=== PATIENT | female | born 1990 | race Caucasian/White ===

== ENCOUNTER 2018-01-25 04:33 | Inpatient (IN) | payer MEDICAID ==
[2018-01-25] VITALS (10 sets, daily range): BP systolic 112–136; BP diastolic 63–88; PULSE 80–104; RESP 13–22; TEMP 96.9–98.6; O2SAT 98–100
[~2018-01-25] VITALS: Ht 165.1 cm; Wt 64.0 kg
[~2018-01-25 04:33] MED LIST: COMPCHW PO
[2018-01-25] MEDS: LACTATED RINGER'S 1000 ML INJ 1,000 ML IV SCH ×3 (04:44→21:07)
[2018-01-25] MEDS ORDERED: LACTATED RINGER'S 1000 ML INJ 1,000 ML IV PRN (05:28)
--- NOTE | 2018-01-25 05:28 | HHI.HP ---
HPI Chief Complaint 27 yo WF 37 wks c/o CTXS , FHR reactive CTXs q 4 min . pt had 2 visits with [facility] Date Seen: Jan 25, 2018 Time Seen: 04:45 Travel History International Travel<30 Days: No Contact w/Intl Traveler<30Days: No Known Affected Area: No History of Present Illness HPI see CC Weeks Gestation: 37 Para: 3 : 4 Last Menstrual Period: Jan 25, 2018 History Obstetric History Obstetric History 3 vag deliveries Social History Alcohol Use: No Tobacco Use: Yes Substance Abuse: No Allergies-Medications (Allergen,Severity, Reaction): Coded Allergies: penicillin G (Unverified Adverse Reaction, Unknown, UNKNOWN, 09/20/17) BLACKOUTS Home Meds Active Scripts Vit W/ Ferrous Fumara (Completenate 29-1 mg) 29 Mg Iron-1 Mg Chw, 1 CHEW PO DAILY, #90 CHEW 2 Refills Prov:Leonidas Jackson MD R2 09/20/17 Review of Systems General / Constitutional: No: Fever, Weight Gain, Chills, Other Eyes: No: Diploplia, Blurred Vision, Visual changes, Pain, Photophobia HENT: No: Headaches, Vertigo, Lightheadedness Cardiovascular: No: Irregular Rhythm, Chest Pain or Discomfort, Palpitations, Tachycardia, Syncope, Varicosities, Edema, Cyanosis Respiratory: No: Cough, Short of Breath, Other Gastrointestinal: Abdominal Pain, No: Nausea, Vomiting, Diarrhea Genitourinary: No: Decreased Urinary Output, Oliguria Musculoskeletal: No: Limited ROM, Weakness, Cramping, Edema, Pain Skin: No Rash, No Itching, No Dryness, No Lumps, No Change in Pigmentation, No Change in Nails, No Alopecia, No Lesions Neurologic: No: Weakness, Dizziness, Syncope, Focal Abnormalities, Coordination Problem, Headache, Slurred Speech, Seizures Psychiatric: No: Depression, Suicidal Ideations, Homicidal Ideation Endocrine: No: Heat Intolerance, Cold Intolerance, Polydipsia, Polyuria, Other Physical Exam Narrative GENERAL: Well-nourished, well-developed patient. SKIN: Warm and dry. HEAD: Normocephalic and atraumatic. EYES: No scleral icterus. No injection or drainage. ENT: No nasal drainage noted. Mucous membranes pink. Airway patent. NECK: Supple, trachea midline. No JVD. CARDIOVASCULAR: Regular rate and rhythm without murmurs, gallops, or rubs. RESPIRATORY: Breath sounds equal bilaterally. No accessory muscle use. BREASTS: Bilateral exam showed no masses , no retractions, no nipple discharge. ABDOMEN/GI: Abdomen soft, non-tender, bowel sounds present, no rebound, no guarding Gravid to [-37] weeks size Fundal Height: [-37] GENITOURINARY: External Genitalia: intact and normal in appearance BUS glands: [-] Cervix: [-ant] Dilatation: [-9] Effacement: [100-] Station: [0-] Presentation: [vtx-] Membranes: [ ruptured] Uterine Contractions: [q 4 min-] FHT's: Category: [-1] Baseline: [-133] Reactive: [-R] Variability: [-mod] Decels: [none-] EXTREMITIES: No cyanosis or edema. BACK: Nontender without obvious deformity. No CVA tenderness. NEUROLOGICAL: Awake and alert. Motor and sensory grossly within normal limits. Five out of 5 muscle strength in all muscle groups. Normal speech. Caprini VTE Risk Assessment Caprini VTE Risk Assessment: No/Low Risk (score <= 1) Caprini Risk Assessment Model Point Value = 1 Point Value = 2 Point Value = 3 Point Value = 5 Age 41-60 Minor surgery BMI > 25 kg/m2 Swollen legs Varicose veins or History of unexplained or recurrent spontaneous Oral contraceptives or hormone replacement Sepsis (< 1 month) Serious lung disease, including pneumonia (< 1 month) Abnormal pulmonary function Acute myocardial infarction Congestive heart failure (< 1 month) History of inflammatory bowel disease Medical patient at bed rest Age 61-74 Arthroscopic surgery Major open surgery (> 45 min) Laparoscopic surgery (> 45 min) Malignancy Confined to bed (> 72 hours) Immobilizing plaster cast Central venous access Age >= 75 History of VTE Family history of VTE Factor V Leiden Prothrombin [id number] Lupus anticoagulant Anticardiolipin antibodies Elevated serum homocysteine Heparin-induced thrombocytopenia Other congenital or acquired thrombophilia Stroke (< 1 month) Elective arthroplasty Hip, pelvis, or leg fracture Acute spinal cord injury (< 1 month) Prophylaxis Regimen Total Risk Factor Score Risk Level Prophylaxis Regimen 0-1 Low Early ambulation 2 Moderate Order ONE of the following: *Sequential Compression Device (SCD) *Heparin 5000 units SQ BID 3-4 Higher Order ONE of the following medications: *Heparin 5000 units SQ TID *Enoxaparin/Lovenox 40 mg SQ daily (WT < 150 kg, CrCl > 30 mL/min) *Enoxaparin/Lovenox 30 mg SQ daily (WT < 150 kg, CrCl > 10-29 mL/min) *Enoxaparin/Lovenox 30 mg SQ BID (WT < 150 kg, CrCl > 30 mL/min) AND/OR *Sequential Compression Device (SCD) 5 or more Highest Order ONE of the following medications: *Heparin 5000 units SQ TID (Preferred with Epidurals) *Enoxaparin/Lovenox 40 mg SQ daily (WT < 150 kg, CrCl > 30 mL/min) *Enoxaparin/Lovenox 30 mg SQ daily (WT < 150 kg, CrCl > 10-29 mL/min) *Enoxaparin/Lovenox 30 mg SQ BID (WT < 150 kg, CrCl > 30 mL/min) AND *Sequential Compression Device (SCD) Data Data Orders Orders Ob (2e) Additional Admit Info (01/25/18 04:38) Assessment/Plan Assessment and Plan 27 yo WF at 37 wks with precipitate labor , cx 9/100/0 on admission , CTXs reg q 4 min , FHR reactive Plan -admit for labor management , anticipate vaginal delivery very soon Wade Vinson II, MD Jan 25, 2018 05:28
[2018-01-25] MEDS ORDERED: MINERAL OIL 10 ML VIAL TOPICAL PRN (05:30)
[2018-01-25] MEDS ORDERED: LIDOCAINE HCL 1% 50 ML VIAL INFIL PRN (05:30)
[2018-01-25] MEDS ORDERED: WITCH HAZEL 50%/GLYCERIN 12.5% 40 PAD JAR TOPICAL PRN (05:30)
[2018-01-25] MEDS ORDERED: CITRIC ACID-SODIUM CITRATE LIQ 30 ML UDC PO SCH (05:30)
[2018-01-25] MEDS ORDERED: ONDANSETRON ODT 4 MG TAB PO PRN (05:30)
[2018-01-25] MEDS ORDERED: OXYTOCIN 30 UNITS-500ML PREMIX 500 ML IV ONE (05:30)
[2018-01-25] MEDS ORDERED: BENZOCAINE 20% TOPICAL SPRAY 60 ML CAN TOPICAL PRN (05:30)
[2018-01-25] MEDS ORDERED: SODIUM CHLORIDE 0.9% FLUSH 10 ML FLUSH IV FLUSH PRN (05:30)
[2018-01-25] MEDS ORDERED: ZOLPIDEM TARTRATE 5 MG TAB PO PRN (05:30)
[2018-01-25] MEDS ORDERED: ALUMINUM/MAGNESIUM/SIMETH 30 ML CUP PO PRN (05:30)
[2018-01-25] MEDS ORDERED: OXYTOCIN 30 UNITS-500ML PREMIX 500 ML IV SCH (05:30)
[2018-01-25] MEDS ORDERED: DOCUSATE SODIUM 50 MG/SENNA 8.6 MG TAB PO PRN (05:30)
[2018-01-25] MEDS ORDERED: SODIUM CHLORID 0.9% 500 ML INJ 500 ML IV PRN (05:30)
[2018-01-25] MEDS ORDERED: LIDOCAINE HCL 1% 50 ML VIAL I-DERMAL PRN (05:30)
[2018-01-25] MEDS ORDERED: SODIUM CHLOR 0.9% 1000 ML INJ 1,000 ML IV PRN (05:48)
[2018-01-25] MEDS ORDERED: NITROGLYCERIN-D5W 50 MG/250 ML 250 ML ONE (06:04)
--- NOTE | 2018-01-25 06:04 | PD.OB.DELI ---
Weeks gestation: 37 Anesthesia: None Episiotomy: None Vaginal Delivery: Normal, Spontaneous Presentation: Occiput anterior Nuchal Cord: x1 Delayed cord clamping (45 sec): Yes Infant: Female Delivery date: Jan 25, 2018 Delivery time: 05:19 One Minute : 9 Five Minute : 9 Weight: 3060g Placenta: Manual removal, Other (Extended 3rd stage of labor >30 minutes, requiring manual extraction of placenta under genera anestesia.) Laceration: Perineal laceration, 1 deg Estimated blood loss: 100 Additional Information Delivered under the supervision of Dr. Karel Goodwin,Goyo Ruby MD R1 Jan 25, 2018 06:04
[2018-01-25] MEDS ORDERED: ONDANSETRON HCL 4 MG/2 ML VIAL IV PUSH ONE (06:10)
[2018-01-25 06:17] LABS: AUTOMATED NEUTROPHIL # 13.8 TH/MM3 (1.8-7.7); BASOPHIL # 0.1 TH/MM3 (0-0.2); BASOPHIL % 0.5 % (0.0-2.0); EOSINOPHIL % 0.1 % (0.0-4.0); HEMATOCRIT 35.9 % (35.0-46.0); LYMPH % 7.4 % (9.0-44.0); LYMPHOCYTE # 1.2 TH/MM3 (1.0-4.8); MEAN CELL VOLUME 85.1 FL (80.0-100.0); MEAN CORPUSCULAR HEMOGLOBIN 28.6 PG (27.0-34.0); MEAN CORPUSCULAR HGB CONC 33.6 % (32.0-36.0); MEAN PLATELET VOLUME 10.1 FL (7.0-11.0); MONO % 6.9 % (0.0-8.0); MONOCYTE # 1.1 TH/MM3 (0-0.9); NEUT % 85.1 % (16.0-70.0); PLATELET COUNT 222 TH/MM3 (150-450); RED BLOOD COUNT 4.21 MIL/MM3 (4.00-5.30); WHITE BLOOD COUNT 16.2 TH/MM3 (4.0-11.0)
[2018-01-25] MEDS ORDERED: MIDAZOLAM HCL 2 MG/2 ML VIAL ONE (06:17)
[2018-01-25] MEDS ORDERED: MISOPROSTOL 200 MCG TAB ONE (06:20)
--- NOTE | 2018-01-25 06:49 | MP ---
cc: Wade Vinson MD DATE OF OPERATION: 01/25/2018 PREOPERATIVE DIAGNOSIS: Adherent placenta prolonged third stage of labor. POSTOPERATIVE DIAGNOSES: Adherent placenta prolonged third stage of labor. PROCEDURE PERFORMED: Manual extraction of the placenta, uterine curettage. PROCEDURE: The patient had delivered vaginally without incident. Placenta would not deliver on its own with traction and massage. The prolonged third stage greater than 30 minutes, it was felt manual extraction needed. The patient was taken to the operating room and given conscious sedation of propofol and the placenta was then manually extracted without difficulty. The uterus remained firm the entire time. Pitocin was given in the IV fluid. The uterus was then explored with the surgeon's hand and small fragments of placental tissue removed. Then, the large banjo curette was used after grasping the cervix with a ring forceps. The banjo curette used to curette the endometrial cavity in a 4-quadrant technique. Uterine evacuation noted. No sign of any injury. Procedure was terminated at this point. 800 mg of Cytotec placed in the rectum. Pitocin was in the IV fluid. Blood loss was 300 mL. There were no complications. The patient was taken to recovery in stable condition. MD JEWELS Kessler/BRIDGER , 06:37 AM , 06:48 AM
[2018-01-25 10:21] LABS: BILIRUBIN, URINE NEG (NEG); BLOOD, URINE SMALL (NEG); GLUCOSE,URINE NEG (NEG); KETONE, URINE 10 mg/dL (NEG); NITRITE,URINE NEG (NEG); SQUAMOUS EPITHELIAL CELL URINE <1 /hpf (0-5); URINE COLOR LIGHT-YELLOW (YELLW/STRAW); URINE LEUKOCYTE ESTERASE NEG (NEG)
[2018-01-25] MEDS: ACETAMINOPHEN 325 MG TAB PO PRN ×2 (11:28→20:12)
[2018-01-25] MEDS: IBUPROFEN 800 MG TAB PO PRN ×2 (11:28→20:12)
[2018-01-25] MEDS ORDERED: ONDANSETRON HCL 4 MG/2 ML VIAL IV ONE (12:00)
[2018-01-25] MEDS ORDERED: LIDOCAINE HCL 1% PF 5 ML SYRINGE OTHER ONE (12:00)
[2018-01-25] MEDS ORDERED: PROPOFOL 200 MG/20 ML AMP IV ONE (12:00)
[2018-01-25] MEDS ORDERED: LACTATED RINGER'S 1000 ML INJ 1,000 ML IV ONE (12:00)
[2018-01-25] MEDS ORDERED: MEASLES, MUMPS, RUBELLA VACCINE 0.5 ML VIAL SQ ONE (16:00)
[2018-01-25] MEDS ORDERED: DIPHTH/TETANUS/ACEL PERTUSSIS (BOOSTER) 0.5 ML VIAL/PFS IM ONE (16:00)
[2018-01-25] MEDS: SODIUM CHLORIDE 0.9% FLUSH 10 ML FLUSH IV FLUSH SCH (21:00)
[2018-01-26 05:59] LABS: AUTOMATED NEUTROPHIL # 7.9 TH/MM3 (1.8-7.7); BASOPHIL % 0.2 % (0.0-2.0); EOSINOPHIL # 0.2 TH/MM3 (0-0.4); EOSINOPHIL % 1.7 % (0.0-4.0); HEMATOCRIT 27.7 % (35.0-46.0); HEMOGLOBIN 9.3 GM/DL (11.6-15.3); LYMPH % 19.7 % (9.0-44.0); LYMPHOCYTE # 2.2 TH/MM3 (1.0-4.8); MEAN CORPUSCULAR HEMOGLOBIN 28.7 PG (27.0-34.0); MEAN CORPUSCULAR HGB CONC 33.7 % (32.0-36.0); MEAN PLATELET VOLUME 10.4 FL (7.0-11.0); MONO % 7.8 % (0.0-8.0); MONOCYTE # 0.9 TH/MM3 (0-0.9); NEUT % 70.6 % (16.0-70.0); PLATELET COUNT 187 TH/MM3 (150-450); RED BLOOD COUNT 3.26 MIL/MM3 (4.00-5.30); RED CELL DISTRIBUTION WIDTH 15.8 % (11.6-17.2); WHITE BLOOD COUNT 11.2 TH/MM3 (4.0-11.0)
[2018-01-26 07:55] VITALS: BP 122/78; PULSE 72; RESP 20; TEMP 97.9
[2018-01-26] MEDS: ACETAMINOPHEN 325 MG TAB PO PRN ×3 (08:21→23:01)
[2018-01-26] MEDS: IBUPROFEN 800 MG TAB PO PRN ×2 (08:21→18:14)
--- NOTE | 2018-01-26 08:23 | HHI.OB ---
Subjective Post Day: 1 Remarks day # 1. AFVSS overnight. Decreased lochia. Denies dysuria. No breast tenderness. She is feeding the baby via formula. Appetite good. No nausea or vomiting. Drug screen +cocaine, benzos. Ambulating well. Denies calf pain or shortness of breath. Otherwise, she is doing well this morning and has no other concerns. Objective Vitals/I&O Vital Signs Date Time Temp Pulse Resp B/P (MAP) Pulse Ox O2 Delivery O2 Flow Rate FiO2 01/25/18 20:05 97.8 85 19 130/82 (98) 01/25/18 15:59 98.0 97 98 01/25/18 15:59 18 01/25/18 15:59 130/74 (92) 01/25/18 12:09 98.6 104 20 112/63 (79) 99 01/25/18 08:40 100 Objective Remarks GENERAL: Well-nourished, well-developed patient. CARDIOVASCULAR: Regular rate and rhythm without murmurs, gallops, or rubs. RESPIRATORY: Breath sounds equal bilaterally. No accessory muscle use. ABDOMEN/GI: Abdomen soft, non-tender. Fundus: Firm, non-tender at umbilicus. GENITOURINARY: Light to moderate bleeding. EXTREMITIES: No cyanosis or edema, non-tender, without signs of DVT. Medications and IVs Current Medications Medications (Trade) Dose Ordered Sig/Heather Route Start Time Stop Time Status Last Admin Lactated Ringer's 1,000 ml @ 125 mls/hr Q8H IV 01/25/18 05:28 01/25/18 04:44 Lactated Ringer's 1,000 ml @ 3,000 mls/hr Q20M PRN IV 01/25/18 05:28 Sodium Chloride 1,000 ml @ 100 mls/hr Q10H PRN IV 01/25/18 05:48 (Xylocaine 1% Inj (50 ml)) 0.1 ml UNSCH X1 PRN I-DERMAL 01/25/18 05:30 01/28/18 05:29 (Bicitra Liq) 30 ml CREDIT REFERENCE CLERK PO 01/25/18 05:30 01/29/18 05:29 (fentaNYL INJ) 50 mcg Q1H PRN IV PUSH 01/25/18 05:30 (fentaNYL INJ) 100 mcg Q1H PRN IV PUSH 01/25/18 05:30 (Xylocaine 1% Inj (50 ml)) 10 ml UNSCH X1 PRN INFIL 01/25/18 05:30 01/27/18 05:29 (Muri-Lube Oil) 10 ml UNSCH PRN TOPICAL 01/25/18 05:30 (NS Flush) 2 ml BID IV FLUSH 01/25/18 09:00 (NS Flush) 2 ml UNSCH PRN IV FLUSH 01/25/18 05:30 (Tylenol) 650 mg Q4H PRN PO 01/25/18 05:30 01/25/18 20:12 (Motrin) 800 mg Q8H PRN PO 01/25/18 05:30 01/25/18 20:12 (Americaine 20% Top Spr) 1 spray Q4H PRN TOPICAL 01/25/18 05:30 (Tucks Pads) 1 applic QID PRN TOPICAL 01/25/18 05:30 (Barb-Colace) 2 tab Q12H PRN PO 01/25/18 05:30 (Ambien) 5 mg HS PRN PO 01/25/18 05:30 (Mag-Al Plus Susp Liq) 15 ml Q8H PRN PO 01/25/18 05:30 (Zofran Odt) 4 mg Q6H PRN PO 01/25/18 05:30 Assessment/Plan Assessment and Plan 27 y/o female who is PPD# 1 s/p . GBS unknown. No PNC. -Continue routine care. -H&H reviewed and within normal limits -Percocet and Motrin PRN pain. -Encouraged OOB. Advised pelvic rest for 6 wks. -Re: ctrl, she would like Depo shot. No history clots, HTN, migraines. Ordered Depo, pt counseled that she will need Depo Provera shot in 3 months. -Anticipate discharge today or tomorrow, depending on baby disposition and psych recommendations. UDS positive for benzos, cocaine. DW Dr. Holman Discharge Planning D/C to home today or tomorrow Tamanna Avery MD R2 Jan 26, 2018 08:23
[2018-01-26] MEDS ORDERED: medroxyPROGESTERone ACETATE SUSP 150 MG/ML SYRINGE IM ONE (09:45)
[2018-01-26] MEDS ORDERED: PILL SPLITTER OTHER PRN (14:15)
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
[2018-01-26] MEDS: SERTRALINE HCL 50 MG TAB PO SCH (15:17)
[2018-01-26] MEDS: clonazePAM 0.5 MG TAB PO SCH ×2 (15:17→21:16)
[2018-01-26] MEDS: LACTATED RINGER'S 1000 ML INJ 1,000 ML IV SCH (19:00)
[2018-01-26] MEDS: SODIUM CHLORIDE 0.9% FLUSH 10 ML FLUSH IV FLUSH SCH (19:01)
[2018-01-26 20:05] VITALS: BP 138/85; PULSE 83; RESP 18; TEMP 97.9
[2018-01-26] MEDS ORDERED: REMOVE OLD NICODERM (NICOTINE) PATCH T-DERMAL SCH (21:00)
[2018-01-27] MEDS: IBUPROFEN 800 MG TAB PO PRN (06:07)
[2018-01-27] MEDS: ACETAMINOPHEN 325 MG TAB PO PRN (06:07)
[2018-01-27] MEDS: clonazePAM 0.5 MG TAB PO SCH (06:07)
[2018-01-27 07:55] VITALS: BP 126/69; PULSE 80; RESP 18; TEMP 97.7
--- NOTE | 2018-01-27 08:30 | HHI.OB ---
Subjective Post Day: 1 Remarks day # 1.AFVSS overnight. Decreased lochia. Denies dysuria. No breast tenderness. She is feeding the baby via breast. Appetite good. No nausea or vomiting. Ambulating well. Denies calf pain or shortness of breath. Otherwise, she is doing well this morning and has no other concerns. Objective Vitals/I&O Vital Signs Date Time Temp Pulse Resp B/P (MAP) Pulse Ox O2 Delivery O2 Flow Rate FiO2 01/26/18 20:05 97.9 83 18 138/85 (102) Objective Remarks GENERAL: Well-nourished, well-developed patient. CARDIOVASCULAR: Regular rate and rhythm without murmurs, gallops, or rubs. RESPIRATORY: Breath sounds equal bilaterally. No accessory muscle use. ABDOMEN/GI: Abdomen soft, non-tender. Fundus: Firm, non-tender at umbilicus. GENITOURINARY: Light to moderate bleeding. EXTREMITIES: No cyanosis or edema, non-tender, without signs of DVT. Medications and IVs Current Medications Medications (Trade) Dose Ordered Sig/Heather Route Start Time Stop Time Status Last Admin Lactated Ringer's 1,000 ml @ 125 mls/hr Q8H IV 01/25/18 05:28 01/25/18 04:44 Lactated Ringer's 1,000 ml @ 3,000 mls/hr Q20M PRN IV 01/25/18 05:28 Sodium Chloride 1,000 ml @ 100 mls/hr Q10H PRN IV 01/25/18 05:48 (Xylocaine 1% Inj (50 ml)) 0.1 ml UNSCH X1 PRN I-DERMAL 01/25/18 05:30 01/28/18 05:29 (Bicitra Liq) 30 ml EMPLOYEE RELATIONS CONSULTANT PO 01/25/18 05:30 01/29/18 05:29 (fentaNYL INJ) 50 mcg Q1H PRN IV PUSH 01/25/18 05:30 (fentaNYL INJ) 100 mcg Q1H PRN IV PUSH 01/25/18 05:30 (Muri-Lube Oil) 10 ml UNSCH PRN TOPICAL 01/25/18 05:30 (NS Flush) 2 ml BID IV FLUSH 01/25/18 09:00 (NS Flush) 2 ml UNSCH PRN IV FLUSH 01/25/18 05:30 (Tylenol) 650 mg Q4H PRN PO 01/25/18 05:30 01/27/18 06:07 (Motrin) 800 mg Q8H PRN PO 01/25/18 05:30 01/27/18 06:07 (Americaine 20% Top Spr) 1 spray Q4H PRN TOPICAL 01/25/18 05:30 (Tucks Pads) 1 applic QID PRN TOPICAL 01/25/18 05:30 (Barb-Colace) 2 tab Q12H PRN PO 01/25/18 05:30 (Ambien) 5 mg HS PRN PO 01/25/18 05:30 (Mag-Al Plus Susp Liq) 15 ml Q8H PRN PO 01/25/18 05:30 (Zofran Odt) 4 mg Q6H PRN PO 01/25/18 05:30 (Zoloft) 25 mg DAILY PO 01/26/18 14:15 01/26/18 15:17 (KlonoPIN) 0.5 mg Q8HR PO 01/26/18 14:15 01/27/18 06:07 (Pill Splitter) 1 ea UNSCH PRN OTHER 01/26/18 14:15 (Habitrol 14 Mg Patch.24 Hr) 1 patch DAILY T-DERMAL 01/27/18 09:00 Miscellaneous Information 1 HS T-DERMAL 01/26/18 21:00 Assessment/Plan Assessment and Plan 27 y/o female who is PPD# 2 s/p . GBS unknown. No PNC. -Continue routine care. -H&H reviewed and within normal limits -Percocet and Motrin PRN pain. -Encouraged OOB. Advised pelvic rest for 6 wks. -Re: ctrl, she would like Depo shot. No history clots, HTN, migraines. Ordered Depo, pt counseled that she will need Depo Provera shot in 3 months. -Anticipate discharge today, depending on baby disposition and psych recommendations. UDS positive for benzos, cocaine. DW Dr. Vinson Discharge Planning D/C to home today pending psych clearance Tamanna Avery MD R2 Jan 27, 2018 08:30
[2018-01-27] MEDS: SODIUM CHLORIDE 0.9% FLUSH 10 ML FLUSH IV FLUSH SCH (08:59)
[2018-01-27] MEDS ORDERED: NICOTINE 14 MG/24 HR PATCH T-DERMAL SCH (09:00)
[2018-01-27] MEDS: SERTRALINE HCL 50 MG TAB PO SCH (09:40)
[2018-01-27] MEDS ORDERED: CLON.5 PO (10:38)
[2018-01-27] MEDS ORDERED: IBUP1TAB7 PO (10:38)
[2018-01-27] MEDS ORDERED: ZOLO50TA PO (10:38)
[2018-01-27] MEDS ORDERED: ACET325T15 PO (10:39)
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
--- NOTE | 2018-01-27 11:45 | HHI.FPPN ---
Addendum to progress note ADDENDUM Reason for addendum: Additonal documentation Additional information Dr Dobbins spoke with Dr Mitchell this morning about Ms Fuentes discharging and Dr Mitchell believes she is stable for discharge. Will discharge pt with medication started by Dr Mitchell to include Zoloft 25mg daily and Klonopin 0.5mg q8h and have the pt follow up with him in 2 weeks. Сергей Dobbins MD R1 Jan 27, 2018 11:45
[2018-01-27] MEDS ORDERED: medroxyPROGESTERone ACETATE SUSP 150 MG/ML SYRINGE IM ONE (13:45)
== END 2018-01-27 13:58 | disposition home or self-care (01) | DRG 767 ==
LOC: HOBED 04:33 → H2EB 04:40 → H1EA 07:42
PROVIDERS: ADMIT Obstetrics & Gynecology Maternal & Fetal Medicine; ATTEND Obstetrics & Gynecology Maternal & Fetal Medicine
PROC: 10E0XZZ Delivery of Products of Conception, External Approach (ICD-10-PCS; principal; 2018-01-25)
PROC: 10D17Z9 Manual Extraction of Products of Conception, Retained, Via Natural or Artificial Opening (ICD-10-PCS; 2018-01-25)
PROC: 0HQ9XZZ Repair Perineum Skin, External Approach (ICD-10-PCS; 2018-01-25)
DX: O99.334 Smoking (tobacco) complicating childbirth (principal); F32.9 Major depressive disorder, single episode, unspecified; Z3A.37 37 weeks gestation of pregnancy; O99.324 Drug use complicating childbirth; F17.200 Nicotine dependence, unspecified, uncomplicated; Z37.0 Single live birth; O69.81X0 Labor and delivery complicated by cord around neck, without compression, not applicable or unspecified; O70.0 First degree perineal laceration during delivery; O99.344 Other mental disorders complicating childbirth; F43.10 Post-traumatic stress disorder, unspecified; F15.90 Other stimulant use, unspecified, uncomplicated; F14.90 Cocaine use, unspecified, uncomplicated; O62.3 Precipitate labor; O73.0 Retained placenta without hemorrhage; Z91.5 Personal history of self-harm; Z91.14 Patient's other noncompliance with medication regimen
CPT/HCPCS: 80074; 80307; 81001; 85025; 86592; 86703; 86900; 86901; 88307; 90715; 99283; G0481; J1050; J2250; J2405; J2590; J3010; J7120

== ENCOUNTER 2018-02-06 20:58 | Inpatient (IN) | payer MEDICAID, OTHER ==
[~2018-02-06 20:58] MED LIST changes: +ACET325T15 PO; +CLON.5 PO; +IBUP1TAB7 PO; +ZOLO50TA PO
[2018-02-06 21:05] VITALS: BP 122/78; PULSE 85; RESP 16; TEMP 98.7; O2SAT 100
[2018-02-06 21:44] LABS: AUTOMATED NEUTROPHIL # 4.2 TH/MM3 (1.8-7.7); BASOPHIL # 0.1 TH/MM3 (0-0.2); BASOPHIL % 0.7 % (0.0-2.0); EOSINOPHIL # 0.3 TH/MM3 (0-0.4); EOSINOPHIL % 4.1 % (0.0-4.0); HEMATOCRIT 35.4 % (35.0-46.0); HEMOGLOBIN 11.9 GM/DL (11.6-15.3); LYMPH % 30.2 % (9.0-44.0); LYMPHOCYTE # 2.2 TH/MM3 (1.0-4.8); MEAN CELL VOLUME 83.1 FL (80.0-100.0); MEAN CORPUSCULAR HGB CONC 33.7 % (32.0-36.0); MEAN PLATELET VOLUME 7.9 FL (7.0-11.0); MONO % 5.9 % (0.0-8.0); MONOCYTE # 0.4 TH/MM3 (0-0.9); NEUT % 59.1 % (16.0-70.0); PLATELET COUNT 472 TH/MM3 (150-450); RED BLOOD COUNT 4.27 MIL/MM3 (4.00-5.30); RED CELL DISTRIBUTION WIDTH 15.4 % (11.6-17.2); WHITE BLOOD COUNT 7.1 TH/MM3 (4.0-11.0)
--- NOTE | 2018-02-06 21:49 | PD ---
HPI Chief Complaint: Psychiatric Symptoms Time Seen by Provider: 21:19 Travel History International Travel<30 days: No Contact w/Intl Traveler<30days: No Traveled to known affect area: No History of Present Illness HPI 27-year-old female that presents to the ED for evaluation of Lamine enamorado. Patient was Raman acted by police secondary to apparently not eating and not taking care of herself. Patient suffers from anxiety and the depression as well as history of polysubstance abuse. She was recently put on Zoloft as well as Klonopin. Patient was recently discharged from the hospital after having a baby and she also per patient suffers from depression. Patient states feeling hopeless and very anxious. She denies any substance abuse. Per patient all the medication she takes other ones prescribed to her. She does have a history of anemia. She denies any pain at this time. She denies any other medical issues. She states that she has been Raman acted before and has been in psychiatric facilities in the past. Ayan Raman act apparently DCF has been involved with her and 2 of her children were removed from her. Ayan Raman acted a significant other who is the father of this new child is concerned for her secondary to increased stress secondary to stopping using substances as well as being a mother. Symptoms appear to have worsened the past few days. Patient denies any other medical issues at this time. Nothing makes them better. PFSH Past Medical History Hx Anticoagulant Therapy: No Anxiety: Yes Depression: Yes Heart Rhythm Problems: Yes (1ST DEGREE AV BLOCK) Cancer: No Cardiovascular Problems: Yes (1ST DEGREE AV BLOCK) Chemotherapy: No Cerebrovascular Accident: No Diabetes: No Diminished Hearing: No Endocrine: No Genitourinary: No Immune Disorder: No Musculoskeletal: No Neurologic: No Psychiatric: Yes (PTSD, MAJOR DEPRESSION/POST ) Respiratory: No Immunizations Current: No Migraines: Yes Seizures: Yes ?: Not Menopausal: No : 5 Para: 3 Miscarriage: 2 Past Surgical History Hysterectomy: No Social History Alcohol Use: No Tobacco Use: Yes Substance Use: Yes (LAST USED METH AND COKE-JANUARY 22, 2018) Allergies-Medications (Allergen,Severity, Reaction): Coded Allergies: penicillin G (Unverified Adverse Reaction, Unknown, UNKNOWN, 09/20/17) BLACKOUTS Reported Meds & Prescriptions Reported Meds & Active Scripts Active Ibuprofen 800 Mg Tab 800 Mg PO Q8H PRN 10 Days Take with food. Zoloft (Sertraline HCl) 50 Mg Tab 25 Mg PO DAILY 30 Days Klonopin (Clonazepam) 0.5 Mg Tab 0.5 Mg PO Q8HR 30 Days Review of Systems Except as stated in HPI: all other systems reviewed are Neg Physical Exam Narrative GENERAL: SKIN: Warm and dry. HEAD: Atraumatic. Normocephalic. EYES: Pupils equal and round. No scleral icterus. No injection or drainage. ENT: No nasal bleeding or discharge. Mucous membranes pink and moist. Tongue is midline. No uvula deviation. NECK: Trachea midline. No JVD. CARDIOVASCULAR: Regular rate and rhythm. No murmurs, S3, S4. RESPIRATORY: No accessory muscle use. Clear to auscultation. Breath sounds equal bilaterally. GASTROINTESTINAL: Abdomen soft, non-tender, nondistended. Hepatic and splenic margins not palpable. MUSCULOSKELETAL: Extremities without clubbing, cyanosis, or edema. No obvious deformities. Full range of motion of the upper and lower extremities bilaterally. 2+ pulses bilaterally. NEUROLOGICAL: Awake and alert. No obvious cranial nerve deficits. Motor grossly within normal limits. Five out of 5 muscle strength in the arms and legs. Normal speech. PSYCHIATRIC: Appropriate mood and affect; insight and judgment normal. Data Data Last Documented VS Vital Signs Date Time Temp Pulse Resp B/P (MAP) Pulse Ox O2 Delivery O2 Flow Rate FiO2 02/06/18 21:05 98.7 85 16 122/78 (93) 100 Orders Orders Complete Blood Count With Diff (02/06/18 21:05) Comprehensive Metabolic Panel (02/06/18 21:05) Thyroid Stimulating Hormone (02/06/18 21:05) Psych Screen (02/06/18 21:05) Drug Screen, Random Urine (02/06/18 21:05) Alcohol (Ethanol) (02/06/18 21:05) Salicylates (Aspirin) (02/06/18 21:05) Tylenol (Acetaminophen) (02/06/18 21:05) Ed Urine Pregnancytest Poc (02/06/18 21:28) Labs Laboratory Tests Test 02/06/18 21:13 02/06/18 21:23 White Blood Count 7.1 TH/MM3 Red Blood Count 4.27 MIL/MM3 Hemoglobin 11.9 GM/DL Hematocrit 35.4 % Mean Corpuscular Volume 83.1 FL Mean Corpuscular Hemoglobin 28.0 PG Mean Corpuscular Hemoglobin Concent 33.7 % Red Cell Distribution Width 15.4 % Platelet Count 472 TH/MM3 Mean Platelet Volume 7.9 FL Neutrophils (%) (Auto) 59.1 % Lymphocytes (%) (Auto) 30.2 % Monocytes (%) (Auto) 5.9 % Eosinophils (%) (Auto) 4.1 % Basophils (%) (Auto) 0.7 % Neutrophils # (Auto) 4.2 TH/MM3 Lymphocytes # (Auto) 2.2 TH/MM3 Monocytes # (Auto) 0.4 TH/MM3 Eosinophils # (Auto) 0.3 TH/MM3 Basophils # (Auto) 0.1 TH/MM3 CBC Comment DIFF FINAL Differential Comment MDM Medical Decision Making Medical Screen Exam Complete: Yes Emergency Medical Condition: Yes Medical Record Reviewed: Yes Differential Diagnosis Depression versus suicidal ideation versus anxiety versus adjustment disorder versus mood disorder versus bipolar disorder versus schizophrenia versus paranoid disorder versus psychosis versus substance abuse versus alcohol abuse versus alcohol induced psychosis versus homicidality addition versus cutting versus personality disorder Narrative Course 27-year-old female that presents to the ED for evaluation of Raman act. Patient was properly examined and was found to have signs and symptoms consistent with psychiatric illness. Labs were drawn. Patient will be medically clear. Okay to be seen by psych. Mental health screening was discussed with the patient. Diagnosis Primary Impression: Adjustment disorder with depressed mood Quentin Quinones Feb 06, 2018 21:49
[2018-02-06 21:54] LABS: ALBUMIN 3.5 GM/DL (3.4-5.0); AST (GOT) 25 U/L (15-37); BICARBONATE 25.1 MEQ/L (21.0-32.0); BLOOD UREA NITROGEN 21 MG/DL (7-18); CALCIUM 9.2 MG/DL (8.5-10.1); CHLORIDE 107 MEQ/L (98-107); CREATININE 0.65 MG/DL (0.50-1.00); GLOMERULAR FILTRATION RATE 109 ML/MIN (>89); GLUCOSE,RANDOM 81 MG/DL (74-106); SODIUM (NA) 140 MEQ/L (136-145)
[2018-02-06 21:55] LABS: ALT (GPT) 37 U/L (10-53)
[2018-02-06 22:05] LABS: ALKALINE PHOSPHATASE 118 U/L (45-117); TOTAL BILIRUBIN ADULT 0.3 MG/DL (0.2-1.0); TOTAL PROTEIN 7.5 GM/DL (6.4-8.2)
[2018-02-06 22:10] LABS: ACETAMINOPHEN LESS THAN 2.0 MCG/ML (10.0-30.0)
[2018-02-07 00:24] VITALS: BP 113/62; PULSE 78; RESP 18; TEMP 99.5; O2SAT 98
[2018-02-07 06:20] VITALS: BP 109/66; PULSE 76; RESP 20; TEMP 97.6; O2SAT 99
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
[2018-02-07] MEDS ORDERED: ALUMINUM/MAGNESIUM/SIMETH 30 ML CUP PO PRN (10:15)
[2018-02-07] MEDS ORDERED: MAGNESIUM HYDROXIDE SUSP 30 ML CUP PO PRN (10:15)
[2018-02-07 11:56] VITALS: BP 121/75; PULSE 94; RESP 18; TEMP 98.8; O2SAT 98
[2018-02-07] MEDS: ACETAMINOPHEN 325 MG TAB PO PRN ×2 (14:27→20:37)
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
[2018-02-07] MEDS: IBUPROFEN 800 MG TAB PO SCH (17:42)
[2018-02-07] MEDS ORDERED: AMMONIA AROMATIC INHALANT 0.33 ML ONE (19:35)
[2018-02-07] MEDS ORDERED: clonazePAM 0.5 MG TAB PO ONE (20:15)
[2018-02-07] MEDS: DOXYCYCLINE HYCLATE 100 MG CAP PO SCH (20:37)
[2018-02-08 05:36] VITALS: BP 126/69; PULSE 97; RESP 16; TEMP 97.7; O2SAT 96
[2018-02-08] MEDS: IBUPROFEN 800 MG TAB PO SCH ×5 (06:37→23:30)
[2018-02-08 07:05] LABS: AUTOMATED NEUTROPHIL # 2.9 TH/MM3 (1.8-7.7); BASOPHIL % 0.8 % (0.0-2.0); EOSINOPHIL # 0.2 TH/MM3 (0-0.4); HEMATOCRIT 33.9 % (35.0-46.0); HEMOGLOBIN 11.5 GM/DL (11.6-15.3); LYMPH % 35.6 % (9.0-44.0); MEAN CELL VOLUME 82.6 FL (80.0-100.0); MEAN CORPUSCULAR HEMOGLOBIN 28.1 PG (27.0-34.0); MONO % 7.4 % (0.0-8.0); MONOCYTE # 0.4 TH/MM3 (0-0.9); NEUT % 52.2 % (16.0-70.0); PLATELET COUNT 407 TH/MM3 (150-450); RED BLOOD COUNT 4.11 MIL/MM3 (4.00-5.30); RED CELL DISTRIBUTION WIDTH 15.7 % (11.6-17.2); WHITE BLOOD COUNT 5.7 TH/MM3 (4.0-11.0)
[2018-02-08 07:33] LABS: BICARBONATE 23.3 MEQ/L (21.0-32.0); BLOOD UREA NITROGEN 23 MG/DL (7-18); CALCIUM 8.9 MG/DL (8.5-10.1); CHLORIDE 108 MEQ/L (98-107); CREATININE 0.69 MG/DL (0.50-1.00); GLOMERULAR FILTRATION RATE 101 ML/MIN (>89); GLUCOSE,RANDOM 89 MG/DL (74-106); SODIUM (NA) 140 MEQ/L (136-145)
[2018-02-08 07:34] LABS: CHOLESTEROL 190 MG/DL (120-200); TRIGLYCERIDES 52 MG/DL (42-150)
[2018-02-08 07:36] LABS: CHOLESTEROL/ HDL RATIO 2.99 RATIO; HDL CHOLESTEROL 63.5 MG/DL (40.0-60.0); LDL CHOLESTEROL 116 MG/DL (0-99)
[2018-02-08] MEDS: DOXYCYCLINE HYCLATE 100 MG CAP PO SCH ×2 (08:19→20:21)
[2018-02-08] MEDS ORDERED: INFLUENZA VIRUS VACCINE (QUADRIVALENT) 0.5 ML SYR IM ONE (10:00)
[2018-02-08] MEDS: ACETAMINOPHEN 325 MG TAB PO PRN ×3 (10:11→20:34)
--- NOTE | 2018-02-08 10:43 | RADRPT ---
EXAM DATE/TIME: 02/08/2018 09:32 [place] COMPARISON: No previous studies available for comparison. INDICATIONS : Pelvic pain. 2 weeks MEDICAL HISTORY : Glasses. Seizures. 1st degree AV block. PTSD. Chronic back pain. Depression. Anxiety. Previous suicid e attempt. SURGICAL HISTORY : D&C. ENCOUNTER: Initial ACUITY: 2 days PAIN SCORE: 9/10 LOCATION: Bilateral pelvis MEASUREMENTS: UTERUS: 13.0 x 7.7 x 7.1 cm RIGHT OVARY: 4.2 x 5.3 x 2.8 cm FINDINGS: There is marked prominence of the endometrial lining with heterogeneous moderately increased echotext ure and poorly defined margins. The thickness of the endometrium measures in excess of 20 mm. There is poor delineation of the margin between the endometrium and myometrium. The right ovary has a nor mal echotexture. The left ovary is not identified on either transabdominal or endovaginal scans. No evidence of free fluid. CONCLUSION: 1. Inhomogeneous echotexture and marked thickening of the endometrium. 2. Left ovary is not identified. 3. No evidence of free fluid. Sanjay Leblanc MD on February 08, 2018 at 10:38 Board Certified Radiologist. This report was verified electronically.
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
[2018-02-08] MEDS ORDERED: hydrOXYzine HCL 50 MG TAB PO PRN (11:00)
[2018-02-08] MEDS: NICOTINE 21 MG/24 HR PATCH T-DERMAL SCH (11:00)
[2018-02-08] MEDS: SERTRALINE HCL 50 MG TAB PO SCH (13:09)
--- NOTE | 2018-02-08 17:25 | PD.CONS ---
HPI Service [facility] Consult Requested By DR SIM ALEMAN MD Reason for Consult Episode of unresponsiveness overnight, responded to smelling salts. Patient reports history of first-degree AV block Primary Care Physician Unknown Diagnoses: History of Present Illness Patient is a 27-year-old female. Who we were asked to see patient regarding episode of unresponsiveness overnight and responding to smelling salts , and history of first-degree AV block. Patient recently has been having depression after having a baby few weeks ago. Was brought in as a Raman act. Has anxiety and depression history of polysubstance abuse with cocaine and methamphetamine We have been asked to see her regarding medical management. Her EKG is abnormal but this is not unexpected after recently giving and having history of cocaine and methamphetamine use Review of Systems ROS Limitations: Altered Mental Status, Psychotic Constitutional: COMPLAINS OF: Fatigue, Weight loss, DENIES: Diaphoretic episodes, Fever, Weight gain, Chills, Dizziness, Change in appetite, Night Sweats Endocrine: COMPLAINS OF: Abnorml menstrual pattern, DENIES: Heat/cold intolerance, Polydipsia, Polyuria, Polyphagia Eyes: DENIES: Blurred vision, Diplopia, Eye inflammation, Eye pain, Vision loss , Photosensitivity, Double Vision Ears, nose, mouth, throat: COMPLAINS OF: Running Nose, DENIES: Tinnitus, Hearing loss, Vertigo, Nasal discharge, Oral lesions, Throat pain, Hoarseness, Ear Pain, Epistaxis Respiratory: DENIES: Apneas, Cough, Snoring, Wheezing, Hemoptysis, Sputum production, Shortness of breath Cardiovascular: DENIES: Chest pain, Palpitations, Syncope, Dyspnea on Exertion , PND, Lower Extremity Edema, Orthopnea, Claudication Gastrointestinal: COMPLAINS OF: Difficulty Swallowing, Anorexia, DENIES: Abdominal pain, Black stools, Bloody stools, Constipation, Diarrhea, Nausea, Vomiting Genitourinary: COMPLAINS OF: Abnormal vaginal bleeding, DENIES: Dysmenorrhea, Dyspareunia, Sexual dysfunction, Urinary frequency, Urinary incontinence, Urgency Musculoskeletal: DENIES: Joint pain, Muscle aches, Stiffness, Joint Swelling, Back pain, Neck pain Integumentary: DENIES: Abnormal pigmentation, Pruritus, Rash, Nail changes, Breast masses, Breast skin changes, Nipple discharge Hematologic/lymphatic: DENIES: Bruising, Lymphadenopathy Immunologic/allergic: DENIES: Eczema, Urticaria Neurologic: DENIES: Abnormal gait, Headache, Localized weakness, Paresthesias, Seizures, Speech Problems, Tremor, Poor Balance Psychiatric: COMPLAINS OF: Anxiety, Confusion, Mood changes, Depression Except as stated in HPI: all other systems reviewed are Neg Past Family Social History Allergies: Coded Allergies: penicillin G (Unverified Adverse Reaction, Unknown, UNKNOWN, 09/20/17) BLACKOUTS Past Medical History First-degree AV block Anxiety and depression PTSD depression Migraines by history Seizures by history 5 para 3 2 miscarriages Past Surgical History Recent D&C after delivery Reported Medications Reported Meds & Active Scripts Active Ibuprofen 800 Mg Tab 800 Mg PO Q8H PRN 10 Days Take with food. Zoloft (Sertraline HCl) 50 Mg Tab 25 Mg PO DAILY 30 Days Klonopin (Clonazepam) 0.5 Mg Tab 0.5 Mg PO Q8HR 30 Days Active Ordered Medications Current Medications Acetaminophen (Tylenol) 650 mg Q4H PRN PO Pain 1-5 or Temp >101F Last administered on 02/08/18at 14:04; Start 02/07/18 at 10:15 Magnesium Hydroxide (Milk Of Magnesia Liq) 30 ml DAILY PRN PO CONSTIPATION; Start 02/07/18 at 10:15 Al Hydrox/Mg Hydrox/Simethicone (Mag-Al Plus Susp Liq) 30 ml Q6H PRN PO DYSPEPSIA Last administered on 02/08/18at 15:18; Start 02/07/18 at 10:15 Influenza Virus Vaccine (Flu (Quadrivalent) Vaccine Inj) 0.5 ml ONCE ONCE IM Last administered on 02/08/18at 10:14; Start 02/08/18 at 10:00; Stop 02/08/18 at 10: 01; Status DC Doxycycline Hyclate (Vibramycin) 100 mg BID PO Last administered on 02/08/18at 08 :19; Start 02/07/18 at 21:00 Ibuprofen (Motrin) 800 mg Q6HR PO Last administered on 02/08/18at 11:21; Start at 18:00 Ammonia (Aromatic Spirit) (Aromatic Ammonia Inhalant) 0.33 ml STK-MED ONCE .ROUTE Last administered on 02/07/18at 19:35; Start 02/07/18 at 19:35; Stop at 19:36; Status DC Clonazepam (KlonoPIN) 0.5 mg NOW ONCE PO Last administered on 02/07/18at 20:37 ; Start 02/07/18 at 20:15; Stop 02/07/18 at 20:16; Status DC Sertraline HCl (Zoloft) 50 mg DAILY PO Last administered on 02/08/18at 13:09; Start 02/08/18 at 11:00 Hydroxyzine HCl (Atarax) 50 mg Q6H PRN PO Anxiety Last administered on at 15:18; Start 02/08/18 at 11:00 Nicotine (Habitrol 21 Mg Patch.24 Hr) 1 patch DAILY T-DERMAL Last administered on 02/08/18at 11:00; Start 02/08/18 at 11:00 Miscellaneous Information 1 DAILY T-DERMAL ; Start 02/09/18 at 09:00 Family History Possible psychiatric problems and possible drug use Tobacco abuse in the family Social History Recent delivery Denies any alcohol Positive tobacco Last used methamphetamine and cocaine January 22 Physical Exam Vital Signs Vital Signs Date Time Temp Pulse Resp B/P (MAP) Pulse Ox O2 Delivery O2 Flow Rate FiO2 02/08/18 05:36 97.7 97 16 126/69 (88) 96 Physical Exam GENERAL: This is a well-nourished, well-developed patient, in no apparent distress. Quite thin appearing awake alert and oriented 3 talkative and cooperative SKIN: No rashes, ecchymoses or lesions. Cool and dry. HEAD: Atraumatic. Normocephalic. No temporal or scalp tenderness. EYES: Pupils equal round and reactive. Extraocular motions intact. No scleral icterus. No injection or drainage. ENT: Nose without bleeding, purulent drainage or septal hematoma. Throat without erythema, tonsillar hypertrophy or exudate. Uvula midline. Airway patent. NECK: Trachea midline. No JVD or lymphadenopathy. Supple, nontender, no meningeal signs. CARDIOVASCULAR: Regular rate and rhythm without murmurs, gallops, or rubs. S1- S2 no S3 or S4 RESPIRATORY: Clear to auscultation. Breath sounds equal bilaterally. No wheezes , rales, or rhonchi. GASTROINTESTINAL: Abdomen soft, non-tender, nondistended. No hepato-splenomegaly , or palpable masses. No guarding. MUSCULOSKELETAL: Extremities without clubbing, cyanosis, or edema. No joint tenderness, effusion, or edema noted. No calf tenderness. Negative Homans sign bilaterally. NEUROLOGICAL: Awake and alert. Cranial nerves II through XII intact. Motor and sensory grossly within normal limits. Five out of 5 muscle strength in all muscle groups. Normal speech. Insight and judgment is limited Mood and behavior somewhat appropriate Laboratory Laboratory Tests Test 02/08/18 06:20 White Blood Count 5.7 Red Blood Count 4.11 Hemoglobin 11.5 Hematocrit 33.9 Mean Corpuscular Volume 82.6 Mean Corpuscular Hemoglobin 28.1 Mean Corpuscular Hemoglobin Concent 34.0 Red Cell Distribution Width 15.7 Platelet Count 407 Mean Platelet Volume 8.0 Neutrophils (%) (Auto) 52.2 Lymphocytes (%) (Auto) 35.6 Monocytes (%) (Auto) 7.4 Eosinophils (%) (Auto) 4.0 Basophils (%) (Auto) 0.8 Neutrophils # (Auto) 2.9 Lymphocytes # (Auto) 2.0 Monocytes # (Auto) 0.4 Eosinophils # (Auto) 0.2 Basophils # (Auto) 0.0 CBC Comment DIFF FINAL Differential Comment Blood Urea Nitrogen 23 Creatinine 0.69 Random Glucose 89 Calcium Level 8.9 Sodium Level 140 Potassium Level 4.1 Chloride Level 108 Carbon Dioxide Level 23.3 Anion Gap 9 Estimat Glomerular Filtration Rate 101 Hemoglobin A1c 4.8 Triglycerides Level 52 Cholesterol Level 190 LDL Cholesterol 116 HDL Cholesterol 63.5 Cholesterol/HDL Ratio 2.99 Result Diagram: 02/08/18 0620 02/08/18 0620 Imaging Last Impressions Abdomen/Pelvis/Transvag US 02/08/18 0841 Signed Impressions: Service Date/Time: Thursday, February 08, 2018 09:32 - CONCLUSION: 1. Inhomogeneous echotexture and marked thickening of the endometrium. 2. Left ovary is not identified. 3. No evidence of free fluid. Sanjay Leblanc MD Assessment and Plan Assessment and Plan Status post recent normal spontaneous vaginal delivery with recent D&C Anxiety and depression We will defer to psychiatry History of methamphetamine and cocaine abuse recommend cessation Chronic back pain Tylenol as needed Abnormal EKG suspect secondary to recent . Recommend cessation of all methamphetamine and cocaine Monitor in the hospital for any other issues episode of unresponsiveness overnight and responding to smelling salts, and history of first-degree AV block-doubt this is been caused by the first degree AV block Can get an echocardiogram for completeness A.m. labs Code Status Full code Discussed Condition With Discussed with RN and patient Prosper Conley DO February 08, 2018 17:25
--- NOTE | 2018-02-08 17:27 | HHI.PR ---
OPERATIONS SUPPORT COORDINATOR Note Note OPERATIONS SUPPORT COORDINATOR Consult Note Patient re-evaluated this afternoon. Patient states her abdominal pain is slightly improved, still present. She endorses intermittent chills as well. Denies subjective fevers. Denies abnormal vaginal discharge or bleeding. GENERAL: NAD, lying in bed CARDIOVASCULAR: Regular rate and rhythm without murmurs, gallops, or rubs. RESPIRATORY: Breath sounds equal bilaterally, without w/r/r. No accessory muscle use.. ABDOMEN/GI: Soft, moderate generalized tenderness but lessened compared to prior exam, +BS, no masses appreciated, no rebound tenderness EXTREMITIES: No cyanosis or edema. BACK: Nontender without obvious deformity. No CVA tenderness A/P: 27-year-old female recently delivered on 01/25/18 via consulted due to generalized abdominal pain. Suspecting endometritis due to instrumentation from uterine curettage and exploration on 01/25/18 although the patient remains afebrile, without leukocytosis and reassuring abdominal and pelvic exams at this time. 1. Endometritis -Continue Doxycycline 100 mg po bid x10 days -Consider addition of Augmentin if clinical exam worsens -TVUS showing inhomogeneous echotexture and marked thickening of the endometrium. No free fluid. -Continue ibuprofen 800 mg po q6h for pain and inflammation 2. Depression and Anxiety -Managed per psychiatry team We will continue to follow. Navjot Puente Dr., MD R2 February 08, 2018 17:27
[2018-02-08 18:19] VITALS: BP 127/83; PULSE 109; RESP 20; TEMP 98.2; O2SAT 98
[2018-02-08 18:32] LABS: HEMOGLOBIN A1C 5.1 % (4.3-6.0)
[2018-02-09] MEDS: IBUPROFEN 800 MG TAB PO SCH ×3 (06:01→18:00)
[2018-02-09 06:11] VITALS: BP 94/65; PULSE 87; RESP 18; TEMP 98.1; O2SAT 98
[2018-02-09] MEDS ORDERED: REMOVE OLD PATCH T-DERMAL SCH (09:00)
[2018-02-09] MEDS: NICOTINE 21 MG/24 HR PATCH T-DERMAL SCH (09:00)
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
[2018-02-09] MEDS: DOXYCYCLINE HYCLATE 100 MG CAP PO SCH ×2 (09:46→20:06)
[2018-02-09] MEDS: SERTRALINE HCL 50 MG TAB PO SCH (09:46)
--- NOTE | 2018-02-09 09:52 | EKG ---
Date Performed: 02/08/2018 Time Performed: 14:09:25 PTAGE: 27 years EKG: Normal Sinus rhythm Possible left atrial abnormality High QRS voltage Possible left ventricular hypertrophy by toma devries high voltage due to young age NO PREVIOUS TRACING DOCTOR: Mesfin Garcia Interpretating Date/Time 02/09/2018 09:52:10
[2018-02-09] MEDS ORDERED: diphenhydrAMINE HCL 25 MG CAP PO PRN (15:30)
[2018-02-09] MEDS: NICOTINE 14 MG/24 HR PATCH T-DERMAL SCH (15:30)
--- NOTE | 2018-02-09 16:15 | PD.TTN ---
Patient Problems 1. Discharge planning 2. Medication compliance 3. Knowledge deficit 4. Lack of coping skills Progress Toward Goals Provider Present: Dr. Stevan Doss Provider Input: 02/08/18 wants titrate medications but can go to [facility] for [place] Act Psychiatric Counselors Present: Lisa Smart LCSW Psych Therapist Input: 02/08/18 talked with [facility] Kala at [phone] and they have treatment plan for her and to transition to [facility] after rehab at [facility] pt is aware and open to it Group Spec/RT/OT/FLORES Present: Amilcar Long OT Group Spec/RT/OT/FLORES Input: 02/08/18 Lisa Clarke LCSW February 09, 2018 16:15
--- NOTE | 2018-02-09 16:26 | HHI.PR ---
FREIGHT ROUTER Note Note FREIGHT ROUTER Consult Note Patient seen and examined this afternoon. Patient denies any abdominal or pelvic pain. She does endorse cramping pain intermittently. Denies subjective fevers. Denies abnormal vaginal discharge or bleeding. GENERAL: NAD CARDIOVASCULAR: Regular rate and rhythm without murmurs, gallops, or rubs. RESPIRATORY: Breath sounds equal bilaterally, without w/r/r. No accessory muscle use.. ABDOMEN/GI: Soft, nontender, nondistended, +BS, no masses appreciated, no rebound tenderness, no guarding EXTREMITIES: No cyanosis or edema. BACK: Nontender without obvious deformity. No CVA tenderness A/P: 27-year-old female recently delivered on 01/25/18 via consulted due to generalized abdominal pain. Suspecting endometritis due to instrumentation from uterine curettage and exploration on 01/25/18 although the patient remains afebrile, without leukocytosis and reassuring abdominal and pelvic exams at this time. 1. Endometritis -Continue Doxycycline 100 mg po bid x10 days, stop date of February 17 in the AM -TVUS showing inhomogeneous echotexture and marked thickening of the endometrium. No free fluid. -Continue ibuprofen 800 mg po q6h for pain and inflammation 2. Depression and Anxiety -Managed per psychiatry team Thank you for this consultation. ART INSTRUCTOR will sign off. Please re-consult if needed. Navjot Gillespie MD R2 February 09, 2018 16:26
[2018-02-09] MEDS: FERROUS SULFATE 325 MG (65 MG ELEMENTAL IRON) TAB PO SCH (17:00)
[2018-02-09 17:44] VITALS: BP 148/76; PULSE 81; RESP 18; TEMP 98.5; O2SAT 98
[2018-02-09] MEDS: traZODone HCL 50 MG TAB PO SCH (20:06)
[2018-02-09] MEDS: ACETAMINOPHEN 325 MG TAB PO PRN (20:07)
[2018-02-10] MEDS: IBUPROFEN 800 MG TAB PO SCH ×4 (00:34→17:49)
[2018-02-10 05:11] VITALS: BP 113/64; PULSE 76; RESP 16; TEMP 97.9; O2SAT 99
[2018-02-10] MEDS: REMOVE OLD PATCH T-DERMAL SCH (09:00)
[2018-02-10] MEDS: SERTRALINE HCL 50 MG TAB PO SCH (09:36)
[2018-02-10] MEDS: DOXYCYCLINE HYCLATE 100 MG CAP PO SCH ×2 (09:36→22:25)
[2018-02-10] MEDS: NICOTINE 14 MG/24 HR PATCH T-DERMAL SCH (09:36)
[2018-02-10] MEDS: ACETAMINOPHEN 325 MG TAB PO PRN ×3 (09:40→22:25)
--- NOTE | 2018-02-10 11:07 | HHI.PR ---
Subjective Remarks Patient seen post echo. She denies any chest pain or palpitations. Objective Vitals Vital Signs Date Time Temp Pulse Resp B/P (MAP) Pulse Ox O2 Delivery O2 Flow Rate FiO2 02/10/18 05:11 97.9 76 16 113/64 (80) 99 02/09/18 17:44 98.5 81 18 148/76 (100) 98 Result Diagram: 02/08/18 0620 02/08/18 0620 Objective Remarks GENERAL: SKIN: Warm and dry. CARDIOVASCULAR: Regular rate and rhythm. RESPIRATORY: No accessory muscle use. Clear to auscultation. Breath sounds equal bilaterally. NEUROLOGICAL: Awake and alert. Motor grossly within normal limits. Five out of 5 muscle strength in the arms and legs. Normal speech. PSYCHIATRIC: Appropriate mood and affect; insight and judgment normal. Urinary Catheter: No Vascular Central Line Catheter: No A/P Assessment and Plan Status post recent normal spontaneous vaginal delivery with recent D&C -Followed by rn gynecology for endometriosis, defer treatment to them Anxiety and depression -We will defer to psychiatry History of methamphetamine and cocaine abuse - recommend cessation Chronic back pain - Tylenol as needed Abnormal EKG suspect secondary to recent . history of first-degree AV block -Recommend cessation of all methamphetamine and cocaine -Echo results pending Discharge Planning Patient can be medically cleared if 2d echo is negative Melanie Muro February 10, 2018 11:07
[2018-02-10] MEDS ORDERED: DOXY100C PO (11:21)
[2018-02-10] MEDS ORDERED: TRAZ50TA12 PO (11:21)
[2018-02-10] MEDS ORDERED: IBUP1TAB7 PO (11:21)
[2018-02-10] MEDS ORDERED: FERR325T20 PO (11:21)
[2018-02-10] MEDS ORDERED: ZOLO50TA PO (11:21)
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
[2018-02-10] MEDS: FERROUS SULFATE 325 MG (65 MG ELEMENTAL IRON) TAB PO SCH ×2 (12:38→17:49)
--- NOTE | 2018-02-10 20:59 | ECHRPT ---
Indication: CARDIOMYOPATHY CONCLUSIONS Normal left ventricular size. Wall thickness is normal. The left ventricular systolic function is low normal (EF 50%). There is trace tricuspid valve regurgitation. The estimated pulmonary arterial pressure is 25 mmHg. BP: 127 / 83 HR: 109 Rhythm: Sinus MEASUREMENTS (Male / Female) Normal Values Technical Quality:Fair 2D ECHO LV Diastolic Diameter PLAX 5.0 cm 4.2 - 5.9 / 3.9 - 5.3 cm LV Systolic Diameter PLAX 3.9 cm IVS Diastolic Thickness 0.8 cm 0.6 - 1.0 / 0.6 - 0.9 cm LVPW Diastolic Thickness 0.8 cm 0.6 - 1.0 / 0.6 - 0.9 cm LV Relative Wall Thickness 0.3 RV Internal Dim ED PLAX 1.7 cm LVOT Diameter 2.1 cm Aortic Root Diameter 3.0 cm LA Systolic Diameter LX 2.3 cm 3.0 - 4.0 / 2.7 - 3.8 cm M-MODE AV Cusp Separation MM 2.1 cm DOPPLER AV Peak Velocity 92.4 cm/s AV Peak Gradient 3.4 mmHg AV Mean Gradient 2.0 mmHg AV Velocity Time Integral 14.3 cm LVOT Peak Velocity 76.7 cm/s LVOT Peak Gradient 2.4 mmHg LVOT Velocity Time Integral 12.2 cm AV Area Cont Eq vti 3.0 cm AV Area Cont Eq pk 2.9 cm Mitral E Point Velocity 69.1 cm/s Mitral A Point Velocity 45.9 cm/s Mitral E to A Ratio 1.5 LV E' Lateral Velocity 15.8 cm/s Mitral E to LV E' Lateral Ratio 4.4 LV E' Septal Velocity 17.2 cm/s Mitral E to LV E' Septal Ratio 4.0 TR Peak Velocity 193.0 cm/s TR Peak Gradient 14.9 mmHg Right Atrial Pressure 10.0 mmHg Pulmonary Artery Systolic Pressu 24.9 mmHg Right Ventricular Systolic Press 24.9 mmHg PV Peak Velocity 67.7 cm/s PV Peak Gradient 1.8 mmHg FINDINGS LEFT VENTRICLE Normal left ventricular size. Wall thickness is normal. The left ventricular systolic function is low normal (EF 50%). RIGHT VENTRICLE Normal right ventricular size and systolic function. LEFT ATRIUM The left atrial size is normal. RIGHT ATRIUM The right atrial size is normal. ATRIAL SEPTUM No atrial level shunt is demonstrated by color flow Doppler interrogation. AORTA The aortic root and proximal ascending aorta are not well visualized. MITRAL VALVE Structurally normal mitral valve. No mitral valve stenosis or regurgitation. AORTIC VALVE Trileaflet aortic valve. No aortic valve stenosis or regurgitation. TRICUSPID VALVE There is trace tricuspid valve regurgitation. The estimated pulmonary arterial pressure is 25_ mmHg. PULMONARY VALVE Trivial pulmonary valve regurgitation. VESSELS The inferior vena cava is normal in size. PERICARDIUM No pericardial effusion. Aashish Sutherland MD, FACC (Electronically Signed) Final Date:10 Feb 2018 20:58
[2018-02-10] MEDS: traZODone HCL 50 MG TAB PO SCH (22:25)
[2018-02-11] MEDS: IBUPROFEN 800 MG TAB PO SCH ×4 (00:16→13:34)
[2018-02-11 04:55] VITALS: BP 115/68; PULSE 83; RESP 16; TEMP 98; O2SAT 98
[2018-02-11] MEDS: ACETAMINOPHEN 325 MG TAB PO PRN (08:36)
[2018-02-11] MEDS: DOXYCYCLINE HYCLATE 100 MG CAP PO SCH (08:36)
[2018-02-11] MEDS: SERTRALINE HCL 50 MG TAB PO SCH (08:42)
[2018-02-11] MEDS: NICOTINE 14 MG/24 HR PATCH T-DERMAL SCH (08:42)
[2018-02-11] MEDS: REMOVE OLD PATCH T-DERMAL SCH (08:42)
[2018-02-11] MEDS: FERROUS SULFATE 325 MG (65 MG ELEMENTAL IRON) TAB PO SCH (12:00)
--- NOTE | 2018-02-11 12:32 | HHI.PYPN ---
Subjective Chief Complaint: Depression, anxiety Remarks Patient seen and examined with nurse. Chart reviewed. Case discussed with nursing staff. Discharge held yesterday as we did not have results of echocardiogram. These have resulted and are essentially normal. The patient has been medically cleared for discharge by the hospitalist. On my examination today, the patient remained psychiatrically stable. She denies any suicidal or homicidal ideation, intent or plan and continues to contract for safety. No evidence of unstable mood disorder. No psychotic symptoms. No side effects from medications. No physical complaints. Expresses hope that she will be able to maintain sobriety after working program at [facility]. Review of Systems Except as stated in HPI: all other systems reviewed are Neg Mental Status Examination Appearance: Appropriate Consciousness: Alert Orientation: x4 Motor Activity: Normal gait, Other (No withdrawal signs noted. No motor abnormalities noted.) Speech: Unremarkable Language: Adequate Fund of Knowledge: Adequate Attention and Concentration: Adequate Memory: Unremarkable Mood: Appropriate Affect: Appropriate Thought Process & Associations: Intact, Logical, Goal directed, Linear Thought Content: Appropriate Hallucination Type: None Delusion Type: None Suicidal Ideation: No Suicidal Plan: No Suicidal Intention: No Homicidal Ideation: No Homicidal Plan: No Homicidal Intention: No Results Labs Labs reviewed. Echocardiogram: CONCLUSIONS Normal left ventricular size. Wall thickness is normal. The left ventricular systolic function is low normal (EF 50%). There is trace tricuspid valve regurgitation. The estimated pulmonary arterial pressure is 25 mmHg. Vitals/IOs Vital Signs Date Time Temp Pulse Resp B/P (MAP) Pulse Ox O2 Delivery O2 Flow Rate FiO2 18 04:55 98.0 83 16 115/68 (84) 98 Assessment & Plan Problem List: (1) Adjustment disorder with mixed anxiety and depressed mood ICD Codes: F43.23 - Adjustment disorder with mixed anxiety and depressed mood (2) Polysubstance abuse ICD Codes: F19.10 - Other psychoactive substance abuse, uncomplicated Assessment & Plan Patient remains psychiatrically stable. She has been medically cleared by the hospitalist. Discharge to [facility] today. Continue psychotropic medications as previously ordered. Justification for Cont. Inpt. . Request HC Surrog/Guard Advoc?: No Carlos Doss MD February 11, 2018 12:32
--- NOTE | 2018-02-11 12:53 | HHI.PR ---
Subjective Remarks Follow-up visit for methamphetamine and cocaine abuse, recent spontaneous vaginal delivery and recent D&C, and abnormal EKG. patient is seen and examined in her room, reports that she will be discharged today. She does report a history of first-degree AV block. She denies any chest pains, palpitations, dizziness, lightheadedness, shortness of breath, fevers, chills, nausea, vomiting or diarrhea. She states that she will be going to start [employer] act, is not very excited over the fact that she will have to stay there for several months. Objective Vitals Vital Signs Date Time Temp Pulse Resp B/P (MAP) Pulse Ox O2 Delivery O2 Flow Rate FiO2 02/11/18 04:55 98.0 83 16 115/68 (84) 98 Result Diagram: 02/08/1861902/08/18619 Imaging Last Impressions Abdomen/Pelvis/Transvag US 02/08/18 0841 Signed Impressions: Service Date/Time: Thursday, February 08, 2018 09:32 - CONCLUSION: 1. Inhomogeneous echotexture and marked thickening of the endometrium. 2. Left ovary is not identified. 3. No evidence of free fluid. Sanjay Leblanc MD Objective Remarks GENERAL: Well-developed female ambulating in the jacobs. SKIN: Warm and dry. CARDIOVASCULAR: Regular rate and rhythm. RESPIRATORY: No accessory muscle use. Clear to auscultation. Breath sounds equal bilaterally. NEUROLOGICAL: Awake and alert. Motor grossly within normal limits. Five out of 5 muscle strength in the arms and legs. Normal speech. PSYCHIATRIC: Appropriate mood and affect, cooperative A/P Assessment and Plan tatus post recent normal spontaneous vaginal delivery with recent D&C -Followed by line assembly utility worker for endometriosis, defer treatment to them Anxiety and depression -We will defer to psychiatry -Discharged today to start [employer] act History of methamphetamine and cocaine abuse - recommend cessation Chronic back pain - Tylenol as needed Abnormal EKG suspect secondary to recent . history of first-degree AV block -Recommend cessation of all methamphetamine and cocaine -2D echo reviewed with patient, EF 50%, trace tricuspid valve regurgitation. No acute intervention at this moment, patient voiced understanding. DVT-ambulation Patient is medically cleared for discharge, can follow-up with PCP. Discussed with nurse. Inez Yang February 11, 2018 12:52
== END 2018-02-11 13:45 | disposition short-term general hospital (02) | DRG 776 ==
LOC: NEPJ 20:58 → NEDA 02-07 10:12 → H260 02-07 11:40
PROVIDERS: ADMIT Psychiatry & Neurology Psychiatry; ATTEND Psychiatry & Neurology Psychiatry
DX: O99.345 Other mental disorders complicating the puerperium (principal); R45.851 Suicidal ideations; O86.12 Endometritis following delivery; O99.325 Drug use complicating the puerperium; F14.10 Cocaine abuse, uncomplicated; D50.9 Iron deficiency anemia, unspecified; O72.2 Delayed and secondary postpartum hemorrhage; F53 Mental and behavioral disorders associated with the puerperium, not elsewhere classified; O90.81 Anemia of the puerperium; O99.335 Smoking (tobacco) complicating the puerperium; O99.89 Other specified diseases and conditions complicating pregnancy, childbirth and the puerperium; F43.23 Adjustment disorder with mixed anxiety and depressed mood; F43.10 Post-traumatic stress disorder, unspecified; G89.29 Other chronic pain; M54.9 Dorsalgia, unspecified; F19.10 Other psychoactive substance abuse, uncomplicated; F17.200 Nicotine dependence, unspecified, uncomplicated; F15.10 Other stimulant abuse, uncomplicated; F41.8 Other specified anxiety disorders; Z91.410 Personal history of adult physical and sexual abuse
CPT/HCPCS: 76830; 76856; 80048; 80053; 80061; 80307; 83036; 84443; 84703; 85025; 86850; 86900; 86901; 90686; 93005; 93306; 93975; 99285; Q2038

== ENCOUNTER 2018-04-04 14:20 | Emergency (ER) | payer MEDICAID, OTHER ==
[~2018-04-04] VITALS: Ht 167.6 cm; Wt 62.0 kg
[~2018-04-04 14:20] MED LIST changes: -ACET325T15 PO; -CLON.5 PO; -COMPCHW PO; +DOXY100C PO; +FERR325T20 PO; +TRAZ50TA12 PO
[2018-04-04 14:27] VITALS: BP 121/76; PULSE 83; RESP 18; TEMP 98.9; O2SAT 100
[2018-04-04] MEDS ORDERED: SODIUM CHLOR 0.9% 1000 ML INJ 1,000 ML IV ONE (14:32)
--- NOTE | 2018-04-04 14:43 | PD ---
HPI Chief Complaint: Syncope/Near-Syncope Time Seen by Provider: 14:24 Travel History International Travel<30 days: No Contact w/Intl Traveler<30days: No Traveled to known affect area: No History of Present Illness HPI The patient is a 27-year-old female who presents to the emergency department via EMS from [facility] after a possible syncopal episode. The patient states she is living in [place], [place], but had to have x-rays prior to chiropractic manipulation, therefore, she went to [facility] in [place], [place], for x-rays. The patient states while she was awaiting to have x-ray she had a syncopal episode. The patient states she has syncopal episode, fell down, landing on her buttocks, complains of coccyx pain. The patient states that she felt weak prior to the episode, and when she awakened she was somewhat diaphoretic and nauseated. However, she denied any vomiting. She does have a history of multiple previous syncopal episodes, the last one during labor per her report as well as one earlier this year. The patient denies any known history of arrhythmias or dysrhythmias. She denies any acute head injury or neck pain. She denies any palpitations, chest pain, shortness of breath, or abdominal pain. Symptoms are mild to moderate. There are no known alleviating or exacerbating factors per [facility] Past Medical History Hx Anticoagulant Therapy: No Anxiety: Yes Depression: Yes Heart Rhythm Problems: Yes (1ST DEGREE AV BLOCK) Cancer: No Cardiovascular Problems: Yes Chemotherapy: No Cerebrovascular Accident: No Diabetes: No Diminished Hearing: No Endocrine: No Genitourinary: No Headaches: No Immune Disorder: No Musculoskeletal: Yes Neurologic: Yes Psychiatric: Yes Reproductive: No Respiratory: No Immunizations Current: No Migraines: Yes Seizures: No ?: Unknown Menopausal: No : 5 Para: 3 Miscarriage: 2 Past Surgical History Gynecologic Surgery: Yes Hysterectomy: No Social History Alcohol Use: No Tobacco Use: Yes Substance Use: Yes (HX COKE AND METH) Allergies-Medications (Allergen,Severity, Reaction): Coded Allergies: penicillin G (Unverified Adverse Reaction, Unknown, UNKNOWN, 04/04/18) BLACKOUTS Reported Meds & Prescriptions Reported Meds & Active Scripts Active Trazodone (Trazodone HCl) 50 Mg Tab 100 Mg PO HS 15 Days Zoloft (Sertraline HCl) 50 Mg Tab 50 Mg PO DAILY 15 Days Ferosul (Ferrous Sulfate) 325 Mg (65 Mg Iron) Tablet 325 Mg PO BID@12,17 15 Days Review of Systems Except as stated in HPI: all other systems reviewed are Neg General / Constitutional: No: Fever Eyes: No: Blurred Vision HENT: Positive: Lightheadedness, No: Headaches Cardiovascular: Positive: Diaphoresis, Syncope, No: Chest Pain or Discomfort Respiratory: No: Shortness of Breath Gastrointestinal: Positive: Nausea, No: Vomiting, Abdominal Pain Musculoskeletal: Positive: Weakness Neurologic: Positive: Syncope, No: Focal Abnormalities, Change in Mentation, Paresthesia, Sensory Disturbance Physical Exam Narrative GENERAL: Awake, alert, nontoxic-appearing 27-year-old female who appears her stated age and is in no acute respiratory distress. The patient was examined in the presence of a female nurse. SKIN: Focused skin assessment warm/dry. HEAD: Atraumatic. Normocephalic. No visible cephalic hematoma. EYES: Pupils equal and round. 4 mm bilateral and reactive. EOMs are intact. ENT: No nasal bleeding or discharge. Mucous membranes pink and moist. NECK: Trachea midline. No JVD. No tenderness over the cervical vertebrae. CARDIOVASCULAR: Regular rate and rhythm. No murmur appreciated. RESPIRATORY: No accessory muscle use. Clear to auscultation. Breath sounds equal bilaterally. GASTROINTESTINAL: Abdomen soft, non-tender, nondistended. No rebound tenderness. Back: No tenderness over the thoracic or lumbar vertebrae. MUSCULOSKELETAL: No obvious deformities. No clubbing. No cyanosis. No edema. Moves all 4 extremities without difficulty. NEUROLOGICAL: Awake and alert. No obvious cranial nerve deficits. Motor grossly within normal limits. Normal speech. Nonfocal. Oriented 4. PSYCHIATRIC: Appropriate mood and affect; insight and judgment normal. Data Data Last Documented VS Vital Signs Date Time Temp Pulse Resp B/P (MAP) Pulse Ox O2 Delivery O2 Flow Rate FiO2 04/04/18 14:51 81 114/70 (85) 85 112/68 (83) 88 113/73 (86) 04/04/18 14:51 18 99 Room Air 04/04/18 14:27 98.9 Orders Orders Electrocardiogram (04/04/18 14:32) Ed Urine Pregnancytest Poc (04/04/18 14:32) Complete Blood Count With Diff (04/04/18 14:32) Comprehensive Metabolic Panel (04/04/18 14:32) Magnesium (Mg) (04/04/18 14:32) Ckmb (Isoenzyme) Profile (04/04/18 14:32) Troponin I (04/04/18 14:32) Ecg Monitoring (04/04/18 14:32) Iv Access Insert/Monitor (04/04/18 14:32) Oximetry (04/04/18 14:32) Sodium Chloride 0.9% Flush (Ns Flush) (04/04/18 14:45) Sodium Chlor 0.9% 1000 Ml Inj (Ns 1000 M (04/04/18 14:32) Orthostatic Vital Signs (04/04/18 14:32) Sacrum And Coccyx (04/04/18 ) Wrist, Complete ([id number]) (04/04/18 ) Labs Laboratory Tests Test 04/04/18 14:36 White Blood Count 6.3 TH/MM3 Red Blood Count 4.19 MIL/MM3 Hemoglobin 11.7 GM/DL Hematocrit 35.6 % Mean Corpuscular Volume 85.0 FL Mean Corpuscular Hemoglobin 28.0 PG Mean Corpuscular Hemoglobin Concent 32.9 % Red Cell Distribution Width 16.0 % Platelet Count 252 TH/MM3 Mean Platelet Volume 8.6 FL Neutrophils (%) (Auto) 62.4 % Lymphocytes (%) (Auto) 26.2 % Monocytes (%) (Auto) 7.6 % Eosinophils (%) (Auto) 3.4 % Basophils (%) (Auto) 0.4 % Neutrophils # (Auto) 3.9 TH/MM3 Lymphocytes # (Auto) 1.6 TH/MM3 Monocytes # (Auto) 0.5 TH/MM3 Eosinophils # (Auto) 0.2 TH/MM3 Basophils # (Auto) 0.0 TH/MM3 CBC Comment DIFF FINAL Differential Comment Blood Urea Nitrogen 24 MG/DL Creatinine 0.83 MG/DL Random Glucose 97 MG/DL Total Protein 6.7 GM/DL Albumin 4.0 GM/DL Calcium Level 8.5 MG/DL Magnesium Level 2.0 MG/DL Alkaline Phosphatase 51 U/L Aspartate Amino Transf (AST/SGOT) 18 U/L Alanine Aminotransferase (ALT/SGPT) 37 U/L Total Bilirubin 0.2 MG/DL Sodium Level 138 MEQ/L Potassium Level 3.5 MEQ/L Chloride Level 105 MEQ/L Carbon Dioxide Level 25.1 MEQ/L Anion Gap 8 MEQ/L Estimat Glomerular Filtration Rate 82 ML/MIN Total Creatine Kinase 97 U/L Troponin I LESS THAN 0.02 NG/ML MDM Medical Decision Making Medical Screen Exam Complete: Yes Emergency Medical Condition: Yes Medical Record Reviewed: Yes Interpretation(s) EKG reveals normal sinus rhythm with a rate of 75. Scheming changes or ectopy noted. No evidence of WPW or Brugada syndrome. Laboratory Tests Test 04/04/18 14:36 White Blood Count 6.3 TH/MM3 Red Blood Count 4.19 MIL/MM3 Hemoglobin 11.7 GM/DL Hematocrit 35.6 % Mean Corpuscular Volume 85.0 FL Mean Corpuscular Hemoglobin 28.0 PG Mean Corpuscular Hemoglobin Concent 32.9 % Red Cell Distribution Width 16.0 % Platelet Count 252 TH/MM3 Mean Platelet Volume 8.6 FL Neutrophils (%) (Auto) 62.4 % Lymphocytes (%) (Auto) 26.2 % Monocytes (%) (Auto) 7.6 % Eosinophils (%) (Auto) 3.4 % Basophils (%) (Auto) 0.4 % Neutrophils # (Auto) 3.9 TH/MM3 Lymphocytes # (Auto) 1.6 TH/MM3 Monocytes # (Auto) 0.5 TH/MM3 Eosinophils # (Auto) 0.2 TH/MM3 Basophils # (Auto) 0.0 TH/MM3 CBC Comment DIFF FINAL Differential Comment Blood Urea Nitrogen 24 MG/DL Creatinine 0.83 MG/DL Random Glucose 97 MG/DL Total Protein 6.7 GM/DL Albumin 4.0 GM/DL Calcium Level 8.5 MG/DL Magnesium Level 2.0 MG/DL Alkaline Phosphatase 51 U/L Aspartate Amino Transf (AST/SGOT) 18 U/L Alanine Aminotransferase (ALT/SGPT) 37 U/L Total Bilirubin 0.2 MG/DL Sodium Level 138 MEQ/L Potassium Level 3.5 MEQ/L Chloride Level 105 MEQ/L Carbon Dioxide Level 25.1 MEQ/L Anion Gap 8 MEQ/L Estimat Glomerular Filtration Rate 82 ML/MIN Total Creatine Kinase 97 U/L Troponin I LESS THAN 0.02 NG/ML Last Impressions Wrist X-Ray 04/04/18 0000 Signed Impressions: CONCLUSION: Negative for fracture or dislocation. Followup in 7-10 days is suggested if s ymptoms persist. Sacrum and Coccyx X-Ray 04/04/18 0000 Signed Impressions: CONCLUSION: Negative for fracture. Differential Diagnosis Differential diagnosis includes syncope, arrhythmia, cardiogenic syncope, neurogenic syncope, psychogenic syncope, seizure, orthostatic hypotension, dehydration, valvular disorder. Narrative Course IV was established, labs are drawn and sent, and the patient was placed on cardiac telemetry monitoring and continuous pulse oximetry monitoring. EKG was ordered and interpreted. Orthostatic vital signs were obtained. The patient was administered IV fluids. Bedside UA test was obtained. Orthostatic vital signs are unremarkable. Laboratory evaluation is unremarkable except for mildly elevated BUN. X-ray of the sacrum/coccyx is negative. X-ray of the right wrist is negative. The patient has multiple syncopal episodes per her report with previous evaluation, she states 1 of them was during delivery while she was actually delivering. There is no evidence of WPW or Brugada. Telemetry monitoring reveals no dysrhythmias. The patient is stable for outpatient follow-up. The patient may benefit from outpatient echocardiogram and/or Holter monitor. Diagnosis Primary Impression: Syncope Qualified Codes: R55 - Syncope and collapse Patient Instructions: General Instructions Additional Instructions: Please provide the patient a copy of her x-ray results and lab results at discharge. Follow-up with your primary physician. Drink plenty of fluids to stay hydrated. He may benefit from outpatient echocardiogram and/or Holter monitor. Disposition: 01 DISCHARGE HOME Condition: Stable Chavez Amaya MD Apr 04, 2018 14:43
[2018-04-04] MEDS ORDERED: SODIUM CHLORIDE 0.9% FLUSH 10 ML FLUSH IVF PRN (14:45)
[2018-04-04 14:51] VITALS: BP_SYST 112; BP_SYST 113; BP_SYST 114; BP_DIAS 68; BP_DIAS 70; BP_DIAS 73; RESP 18; O2SAT 99
[2018-04-04 15:01] LABS: AUTOMATED NEUTROPHIL # 3.9 TH/MM3 (1.8-7.7); BASOPHIL % 0.4 % (0.0-2.0); EOSINOPHIL # 0.2 TH/MM3 (0-0.4); EOSINOPHIL % 3.4 % (0.0-4.0); HEMATOCRIT 35.6 % (35.0-46.0); HEMOGLOBIN 11.7 GM/DL (11.6-15.3); LYMPH % 26.2 % (9.0-44.0); LYMPHOCYTE # 1.6 TH/MM3 (1.0-4.8); MEAN CORPUSCULAR HGB CONC 32.9 % (32.0-36.0); MEAN PLATELET VOLUME 8.6 FL (7.0-11.0); MONO % 7.6 % (0.0-8.0); MONOCYTE # 0.5 TH/MM3 (0-0.9); NEUT % 62.4 % (16.0-70.0); PLATELET COUNT 252 TH/MM3 (150-450); RED BLOOD COUNT 4.19 MIL/MM3 (4.00-5.30); WHITE BLOOD COUNT 6.3 TH/MM3 (4.0-11.0)
[2018-04-04 15:24] LABS: AST (GOT) 18 U/L (15-37); BICARBONATE 25.1 MEQ/L (21.0-32.0); BLOOD UREA NITROGEN 24 MG/DL (7-18); CALCIUM 8.5 MG/DL (8.5-10.1); CHLORIDE 105 MEQ/L (98-107); CREATININE 0.83 MG/DL (0.50-1.00); GLOMERULAR FILTRATION RATE 82 ML/MIN (>89); GLUCOSE,RANDOM 97 MG/DL (74-106); SODIUM (NA) 138 MEQ/L (136-145)
[2018-04-04 15:25] LABS: ALT (GPT) 37 U/L (10-53)
[2018-04-04 15:30] LABS: ALKALINE PHOSPHATASE 51 U/L (45-117); TOTAL BILIRUBIN ADULT 0.2 MG/DL (0.2-1.0); TOTAL PROTEIN 6.7 GM/DL (6.4-8.2); TROPONIN I LESS THAN 0.02 NG/ML (0.02-0.05)
--- NOTE | 2018-04-04 15:32 | RADRPT ---
EXAM DATE: 04/04/2018 3:24 PM EDT AGE/SEX: 27 years / Female INDICATIONS: Fell at the chiropractor. CLINICAL DATA: This is the patient's initial encounter. Patient reports that signs and symptoms have been present for 1 day and indicates a pain score of 7/10. MEDICAL/SURGICAL HISTORY: None. None. COMPARISON: No prior exams available for comparison. FINDINGS: Two-view examination of the sacrum and coccyx demonstrates no evidence of fracture or malalignment. The sacral ala and foramina appear symmetric and intact. The coccyx appears unremarkable. The preve rtebral soft tissues are within normal limits. CONCLUSION: Negative for fracture. Electronically signed by: Prosper Fernandez MD 04/04/2018 3:31 PM EDT
--- NOTE | 2018-04-04 15:54 | RADRPT ---
EXAM DATE: 04/04/2018 3:21 PM EDT AGE/SEX: 27 years / Female INDICATIONS: Fell at the chiropractor today. CLINICAL DATA: This is the patient's initial encounter. Patient reports that signs and symptoms have been present for 1 day and indicates a pain score of 7/10. MEDICAL/SURGICAL HISTORY: None. None. COMPARISON: No prior exams available for comparison. FINDINGS: Bony structures are intact and in normal alignment. Joints are intact without dislocation or signifi cant arthropathy. Osseous density is normal. Soft tissues are unremarkable. No radiopaque foreign bodies seen. CONCLUSION: Negative for fracture or dislocation. Followup in 7-10 days is suggested if symptoms persist. Electronically signed by: Prosper Fernandez MD 04/04/2018 3:53 PM EDT
--- NOTE | 2018-04-04 19:36 | EKG ---
Date Performed: 04/04/2018 Time Performed: 14:40:39 PTAGE: 27 years EKG: Sinus rhythm NORMAL ECG Compared to prior electrocardiogram, P wave morphology is slightly different and I cannot rule out an ectopic atrial rhythm. PREVIOUS TRACING : 02/08/2018 14.09 DOCTOR: Elias Mesa Interpretating Date/Time 04/04/2018 19:34:58
== END 2018-04-04 17:23 | disposition home or self-care (01) ==
LOC: NEPC 14:20
DX: R55 Syncope and collapse (principal); R61 Generalized hyperhidrosis; M53.3 Sacrococcygeal disorders, not elsewhere classified; F32.9 Major depressive disorder, single episode, unspecified; Z72.0 Tobacco use
CPT/HCPCS: 72220; 73110; 80053; 82550; 83735; 84484; 84703; 85025; 93005; 96360; 99285; J7030; L3908